=== PATIENT | male | born 1995 | race Caucasian/White ===

== ENCOUNTER 2018-01-04 01:07 | Emergency (ER) | payer SELFPAY ==
[~2018-01-04] VITALS: Ht 177.8 cm; Wt 86.0 kg
[~2018-01-04 01:07] MED LIST: AMOXICILLIN500 MG OR; AMOXICILLIN500 MG PO; AMOXICILLIN875 MG OR; NO CURRENT MEDS; NO HOME MEDS; PROMETHAZINE25 MG OR; PROMETHAZINE25 MG RE; ZOFRAN ODT4 MG OR
[2018-01-04] MEDS ORDERED: DOXYCYCL HYC100 MG PO (02:08)
[2018-01-04 02:15] LABS: URINE BILIRUBIN - DIPSTICK NEGATIVE (NEGATIVE); URINE BLOOD DIPSTICK NEGATIVE (NEGATIVE); URINE COLOR YELLOW; URINE GLUCOSE - DIPSTICK NEGATIVE (NEGATIVE); URINE KETONE NEGATIVE (NEGATIVE); URINE LEUK ESTERASE NEGATIVE (NEGATIVE); URINE NITRITE - DIPSTICK NEGATIVE (Negative); URINE PROTEIN - DIPSTICK NEGATIVE (NEG-TRACE); URINE SPECIFIC GRAVITY <=1.005; URINE UROBILINOGEN - DIPSTICK 0.2 E.U./dL (0.2)
[2018-01-04 02:17] VITALS: BP 131/74
[2018-01-04 02:18] LABS: URINE CLARITY CLEAR
== END 2018-01-04 02:25 | disposition home or self-care (01) | DRG 690 ==
LOC: ED 01:07
PROVIDERS: Family Medicine
DX: N34.2 Other urethritis (principal)

== ENCOUNTER 2018-05-14 15:10 | Emergency (ER) | payer SELFPAY ==
[~2018-05-14] VITALS: Ht 177.8 cm; Wt 91.0 kg
[~2018-05-14 15:10] MED LIST changes: +DOXYCYCL HYC100 MG PO
[2018-05-14] MEDS ORDERED: DOXYCYC MONO100 M1 PO (15:25)
[2018-05-14 15:32] VITALS: BP 135/75
== END 2018-05-14 15:39 | disposition home or self-care (01) | DRG 607 ==
LOC: ED 15:10
DX: L73.9 Follicular disorder, unspecified (principal)

== ENCOUNTER 2021-06-04 08:39 | Emergency (ER) | payer SELFPAY ==
[~2021-06-04] VITALS: Ht 177.8 cm; Wt 90.4 kg
[~2021-06-04 08:39] MED LIST changes: +DOXYCYC MONO100 M1 PO
[2021-06-04 09:32] LABS: HEMATOCRIT 43.1 % (39.0-50.0); HEMOGLOBIN 14.1 g/dl (14.0-18.0); IMMATURE GRANULOCYTES 0.4 % (0.0-5.0); MEAN CELL VOLUME 87.1 fL CALC (80.0-100.0); MEAN CORPUSCULAR HGB 28.5 pG CALC (26.0-32.0); MEAN CORPUSCULAR HGB CONC 32.7 g/dL CAL (32.0-36.0); NEUT# 13.48 thou/uL (1.82-7.42); RED BLOOD COUNT 4.95 mill/uL (4.70-6.10); RED CELL DISTRI WIDTH 12.9 % (11.5-15.5)
[2021-06-04 09:46] LABS: ANION GAP 14 (6-22 (CALC)); BUN 10 mg/dL (9-20); BUN/CREATININE RATIO 12 (12-20 (CALC)); CARBON DIOXIDE 27 mmol/l (22-30); CHLORIDE 100 mmol/l (95-108); CREATININE 0.9 mg/dL (0.7-1.3); GFR > 60 ML/MIN (>=60 (CALC)); GFR FOR AFR.AMER. > 60 ML/MIN (>=60 (CALC)); POTASSIUM 3.8 mmol/l (3.5-5.1); SODIUM 136 mmol/l (137-146)
[2021-06-04] MEDS ORDERED: TORADOL PO (10:24)
[2021-06-04 10:29] VITALS: BP 117/63
[2021-06-05] MEDS ORDERED: ZPAK PO (23:48)
== END 2021-06-04 10:40 | disposition home or self-care (01) | DRG 103 ==
LOC: ED 08:39
PROVIDERS: Emergency Medicine
DX: R51.9 Headache, unspecified (principal); M79.10 Myalgia, unspecified site; R11.0 Nausea; J02.9 Acute pharyngitis, unspecified; Z20.822 Contact with and (suspected) exposure to COVID-19

== ENCOUNTER 2021-06-05 23:22 | Emergency (ER) | payer SELFPAY ==
[~2021-06-05] VITALS: Ht 177.8 cm; Wt 89.0 kg
[~2021-06-05 23:22] MED LIST changes: +TORADOL PO
[2021-06-05] MEDS ORDERED: ZPAK PO (23:48)
[2021-06-06 00:36] LABS: HEMATOCRIT 37.5 % (39.0-50.0); HEMOGLOBIN 12.2 g/dl (14.0-18.0); IMMATURE GRANULOCYTES 0.2 % (0.0-5.0); MEAN CELL VOLUME 89.1 fL CALC (80.0-100.0); MEAN CORPUSCULAR HGB CONC 32.5 g/dL CAL (32.0-36.0); NEUT# 8.36 thou/uL (1.82-7.42); RED BLOOD COUNT 4.21 mill/uL (4.70-6.10); RED CELL DISTRI WIDTH 13.1 % (11.5-15.5)
[2021-06-06 00:49] LABS: ALBUMIN 3.9 g/dL (3.2-5.0); ANION GAP 12 (6-22 (CALC)); BUN 9 mg/dL (9-20); BUN/CREATININE RATIO 9 (12-20 (CALC)); CARBON DIOXIDE 27 mmol/l (22-30); CHLORIDE 102 mmol/l (95-108); CREATININE 0.9 mg/dL (0.7-1.3); GFR > 60 ML/MIN (>=60 (CALC)); GFR FOR AFR.AMER. > 60 ML/MIN (>=60 (CALC)); POTASSIUM 3.8 mmol/l (3.5-5.1); SODIUM 137 mmol/l (137-146); TOTAL PROTEIN 7.4 g/dL (6.3-8.2)
[2021-06-06 00:50] LABS: ALKALINE PHOSPHATASE 78 u/l (38-126); BILIRUBIN, TOTAL 0.5 mg/dL (0.0-1.4); SGOT/AST 83 u/l (17-59)
[2021-06-06 00:53] LABS: D-DIMER 0.29 mg/L (0.19-0.60)
[2021-06-06 01:02] LABS: MYOGLOBIN 220 ng/mL (0 - 121)
[2021-06-06 01:08] LABS: ACT PARTIAL THROMBO TIME 30.3 SECONDS (20.0-32.5); PROTHROMBIN TIME 10.9 SECONDS (9.0-12.5)
[2021-06-06 03:27] VITALS: BP 103/53
== END 2021-06-06 03:27 | disposition short-term general hospital (02) | DRG 313 ==
LOC: ED 23:22
PROVIDERS: Family Medicine
DX: R07.9 Chest pain, unspecified (principal); R79.89 Other specified abnormal findings of blood chemistry
CPT/HCPCS: J0131